=== PATIENT | female | born 1975 | race Two or more races ===

== ENCOUNTER 2018-08-19 15:15 | Emergency (ER) | payer SELFPAY ==
[~2018-08-19] VITALS: Ht 167.6 cm; Wt 74.0 kg
[2018-08-19] MEDS ORDERED: SODIUM CHLORIDE 0.9% 1,000 ML IV ONE (15:58)
[2018-08-19] MEDS ORDERED: ONDANSETRON HCL 4MG/2ML INJ IV ONE (16:00)
[2018-08-19] MEDS ORDERED: MORPHINE SULFATE 10 MG/ML CPJ IV ONE (16:00)
[2018-08-19 16:35] LABS: BASOPHILS % 0.9 % (0.0-2.0); EOSINOPHILS % 0.8 % (0.0-5.0); HEMATOCRIT. 43.1 % (36.0-48.0); HEMOGLOBIN. 14.3 g/dL (12.0-16.0); LYMPHOCYTES % 33.6 % (20.0-50.0); MEAN CORPUSCULAR HEMOGLOBIN 26.4 pg (28.0-32.0); MEAN CORPUSCULAR VOLUME 79.4 fL (81.0-99.0); MEAN PLATELET VOLUME 8.5 fl (7.4-10.4); MONOCYTES % 4.5 % (2.0-8.0); NEUTROPHILS % 60.2 % (40.0-76.0); PLATELET 356 x1000/uL (130-400); RED BLOOD CELL COUNT 5.43 mill/uL (4.2-5.4); RED CELL DISTRIBUTION WIDTH 13.2 % (11.6-14.6)
[2018-08-19 16:38] LABS: CHLORIDE 103 mEq/L (98-107)
[2018-08-19 16:41] LABS: PARTIAL THROMBOPLASTIN TIME 24.7 sec (23.4-31.0); PROTHROMBIN TIME 9.9 sec (9.1-11.1)
[2018-08-19 16:45] LABS: ETHANOL BLOOD < 10 mg/dL
[2018-08-19 16:54] LABS: HCG SCREEN NEGATIVE
[2018-08-19] MEDS ORDERED: MORPHINE SULFATE 4 MG/ML CPJ (NOT FOR IM USE) IV ONE ×2 (17:30→19:15)
[2018-08-19 20:44] VITALS: BP 158/71
== END 2018-08-19 21:23 | disposition short-term general hospital (02) ==
LOC: ER 15:15
DX: S82.041A Displaced comminuted fracture of right patella, initial encounter for closed fracture (principal); I10 Essential (primary) hypertension; E11.9 Type 2 diabetes mellitus without complications; M25.512 Pain in left shoulder; M54.2 Cervicalgia; W18.39XA Other fall on same level, initial encounter; Y93.89 Activity, other specified; Y92.89 Other specified places as the place of occurrence of the external cause; Y99.8 Other external cause status
CPT/HCPCS: 36415; 71045; 72125; 72170; 73552; 73560; 80053; 83880; 84484; 84703; 85025; 85610; 85730; 93005; 96361; 96374; 96375; 96376; 99285; G0482; J2270; J2405; J7030

== ENCOUNTER 2023-11-06 04:10 | Emergency (ER) | payer SELFPAY ==
[~2023-11-06] VITALS: Ht 162.6 cm; Wt 77.0 kg
[~2023-11-06 04:10] MED LIST: FLUC100T MT; INSU100I28 SQ; METF-415 MT; METFORMIN; NITR-87 MT
[2023-11-06 04:17] VITALS: O2SAT 99
[2023-11-06] MEDS ORDERED: LIDOCAINE HCL 1% 20ML VIAL (Pyxis) INJ INFIL ONE (06:45)
[2023-11-06] MEDS ORDERED: BUPIVACAINE HCL 0.25% (2.5MG/ML) 50ML IR ONE (06:45)
[2023-11-06] MEDS ORDERED: BUPIVACAINE HCL/PF 0.25% (2.5MG/ML) 10ML INFIL NR (07:30)
[2023-11-06 09:45] VITALS: BP 206/100; PULSE 84; RESP 18; TEMP 98.7
== END 2023-11-06 09:54 | disposition home or self-care (01) ==
LOC: ER 04:10
DX: K08.89 Other specified disorders of teeth and supporting structures (principal); I10 Essential (primary) hypertension; E11.9 Type 2 diabetes mellitus without complications; Z98.890 Other specified postprocedural states
CPT/HCPCS: 99282; 81025; J3490 ×2

== ENCOUNTER 2024-11-11 16:46 | Emergency (ER) | payer SELFPAY ==
[~2024-11-11] VITALS: Ht 160 cm; Wt 78.0 kg
[2024-11-11 16:54] VITALS: TEMP 36.9; O2SAT 99
[2024-11-11] MEDS: OXYCODONE HCL/ACETAMINOPHEN 5/325MG TABLET PO ONE (18:54)
[2024-11-11 20:58] VITALS: BP 147/68; PULSE 91; RESP 18; O2SAT 99
== END 2024-11-11 21:00 | disposition home or self-care (01) ==
LOC: ER 16:46
DX: G89.11 Acute pain due to trauma (principal); E11.9 Type 2 diabetes mellitus without complications; I10 Essential (primary) hypertension; Z79.4 Long term (current) use of insulin; Z79.84 Long term (current) use of oral hypoglycemic drugs; Z96.659 Presence of unspecified artificial knee joint; V89.2XXA Person injured in unspecified motor-vehicle accident, traffic, initial encounter; Y93.89 Activity, other specified; Y92.89 Other specified places as the place of occurrence of the external cause; Y99.8 Other external cause status
CPT/HCPCS: 71045; 73030; 73060; 99284; A4565

== ENCOUNTER 2025-05-09 16:57 | Emergency (ER) | payer SELFPAY ==
[~2025-05-09] VITALS: Ht 170.2 cm; Wt 77.0 kg
[2025-05-09 16:59] VITALS: TEMP 37; O2SAT 100
[2025-05-09 18:00] LABS: BASOPHILS % 1.2 % (0.0-2.0); EOSINOPHILS % 2.5 % (0.0-5.0); HEMATOCRIT. 32.9 % (36.0-48.0); HEMOGLOBIN. 11.0 g/dL (12.0-16.0); LYMPHOCYTES % 24.7 % (20.0-50.0); MEAN PLATELET VOLUME 8.1 fl (7.4-10.4); MONOCYTES % 7.6 % (2.0-8.0); NEUTROPHILS % 64.0 % (40.0-76.0); PLATELET 425 x1000/uL (130-400); RED BLOOD CELL COUNT 4.08 mill/uL (4.2-5.4); RED CELL DISTRIBUTION WIDTH 13.3 % (11.6-14.6)
[2025-05-09 18:16] LABS: CREATININE 0.6 mg/dL (0.6-1.0); UREA NITROGEN BLOOD 14 mg/dL (9-23)
[2025-05-09 18:19] LABS: TROPONIN I HIGH SENSITIVITY < 4 ng/L (3.0-34)
[2025-05-09 20:22] VITALS: BP 133/76; PULSE 93; RESP 14; O2SAT 97
== END 2025-05-09 20:29 | disposition home or self-care (01) ==
LOC: ER 16:57
DX: R55 Syncope and collapse (principal); E11.9 Type 2 diabetes mellitus without complications; E78.00 Pure hypercholesterolemia, unspecified; I10 Essential (primary) hypertension; Z96.659 Presence of unspecified artificial knee joint; Z98.890 Other specified postprocedural states
CPT/HCPCS: 36415; 80048; 84484; 85025; 93005; 99284